=== PATIENT | female | born 1935 | race Caucasian/White ===

== ENCOUNTER 2018-03-28 00:33 | Emergency (ER) | payer MEDICARE, OTHER ==
[~2018-03-28] VITALS: Ht 157.5 cm; Wt 52.0 kg
[2018-03-28 01:23] LABS: MICROSCOPIC NOT IND
[2018-03-28 01:25] LABS: CULTURE INDICATED? NO
[2018-03-28] MEDS ORDERED: CITA10TA4 PO (02:11)
[2018-03-28] MEDS ORDERED: CLOT21CR TD (02:12)
[2018-03-28] MEDS ORDERED: DONE10TA7 PO (02:13)
[2018-03-28] MEDS ORDERED: FLUT15.88 NAS (02:15)
[2018-03-28] MEDS ORDERED: FURO20TA3 PO (02:16)
[2018-03-28] MEDS ORDERED: TRAM50TA2 PO (02:18)
[2018-03-28] MEDS ORDERED: POTA10TA11 PO (02:18)
[2018-03-28] MEDS ORDERED: TRIA1CAP3 PO (02:19)
[2018-03-28] MEDS ORDERED: CHOL2000 PO (02:21)
[2018-03-28 02:31] VITALS: BP 106/51
== END 2018-03-28 03:23 | disposition home or self-care (01) ==
LOC: ED 02:28
DX: S06.0X9A Concussion with loss of consciousness of unspecified duration, initial encounter (principal); S00.31XA Abrasion of nose, initial encounter; I73.9 Peripheral vascular disease, unspecified; F03.90 Unspecified dementia, unspecified severity, without behavioral disturbance, psychotic disturbance, mood disturbance, and anxiety; G89.29 Other chronic pain; W01.0XXA Fall on same level from slipping, tripping and stumbling without subsequent striking against object, initial encounter; Y93.89 Activity, other specified; Y92.098 Other place in other non-institutional residence as the place of occurrence of the external cause; Y99.8 Other external cause status
CPT/HCPCS: 70450; 81003; 93005; 99285

== ENCOUNTER 2018-06-24 15:44 | Emergency (ER) | payer MEDICARE, OTHER ==
[~2018-06-24] VITALS: Ht 162.6 cm; Wt 70.0 kg
[~2018-06-24 15:44] MED LIST: CHOL2000 PO; CITA10TA4 PO; CLOT21CR TD; DONE10TA7 PO; FLUT15.88 NAS; FURO20TA3 PO; POTA10TA11 PO; TRAM50TA2 PO; TRIA1CAP3 PO
[2018-06-24 16:26] LABS: ALBUMIN 3.6 g/dL (3.4-5.0); ANION GAP 10 mmol/L (5-15); CHLORIDE 105 mmol/L (98-107); CREATININE 1.57 mg/dL (0.55-1.02)
[2018-06-24 16:28] LABS: MEAN CORPUSCULAR HEMOGLOBIN 30.5 pg (27.0-34.8); MEAN CORPUSCULAR HGB CONC 33.6 g/dL (32.4-35.8); MEAN CORPUSCULAR VOLUME 90.8 fL (80-100); MEAN PLATELET VOLUME 9.3 fL (7.4-10.4); PLATELET COUNT 202 x10^3/uL (130-400); RED CELL DISTRIBUTION WIDTH 13.7 % (9.6-15.2)
[2018-06-24 16:53] LABS: BASOPHILS # (AUTO) 0.09 x10^3/uL (0-0.1); BASOPHILS % (AUTO) 1 % (0-1); EOSINOPHILS # (AUTO) 0.05 x10^3/uL (0-0.4); EOSINOPHILS % (AUTO) 0 % (1-7); LYMPHOCYTES # (AUTO) 2.17 x10^3/uL (1-3.4); LYMPHOCYTES % (AUTO) 18 % (22-44); MD SCAN; MONOCYTES # (AUTO) 1.74 x10^3/uL (0.2-0.8); MONOCYTES % (AUTO) 14 % (2-9); NEUTROPHILS # (AUTO) 8.16 x10^3/uL (1.8-6.8); NEUTROPHILS % (AUTO) 67 % (42-75)
[2018-06-24 17:17] LABS: CULTURE INDICATED? YES; MICROSCOPIC INDICATED
[2018-06-24 20:09] LABS: CLOSTRIDIUM DIFFICILE ANTIGEN NEGATIVE; CLOSTRIDIUM DIFFICILE TOXIN NEGATIVE (Negative)
[2018-06-24 21:23] VITALS: BP 113/56
== END 2018-06-24 21:22 | disposition home or self-care (01) ==
LOC: ED 19:21
DX: R19.7 Diarrhea, unspecified (principal); N30.00 Acute cystitis without hematuria; G89.29 Other chronic pain; I73.9 Peripheral vascular disease, unspecified
CPT/HCPCS: 36415; 80048; 81001; 82040; 85025; 87077; 87086; 87186; 87324; 89055; 99284